=== PATIENT | female | born 1995 | race Caucasian/White ===

== ENCOUNTER → 2019-08-24 16:10 | Observation (INO) ==
--- NOTE | 2019-08-24 12:34 | Discharge Summary ---
Date of Encounter: 08/24/19 Time of Encounter: 15:21 - Discharge Diagnosis (1) 31 weeks gestation of Priority: Primary Status: Acute Comments: Follow up with your primary OB as scheduled Discharge home (2) Uterine contractions Priority: Secondary Status: Acute Comments: Monitored for several hours with no change. - Discharge Medications Prescriptions: No Action Albuterol Sulfate [Proventil Inhaler] 2 puff IH Q6HR Home Medications: Albuterol Sulfate [Proventil Inhaler] 2 puff IH Q6HR 08/24/19 [History] Allergies/Adverse Reactions: Allergy/AdvReac Type Severity Reaction Status Date / Time No Known Allergies Allergy Verified 06/22/16 20:50 Date of admission: 08/24/19 12:03 Primary care physician: PCP NONE Discharging clinician: Jeanne Suarez Anticipated date of discharge: 08/24/19 - Patient Status Disposition: Home, Self-Care Condition: Good Functional capacity at discharge: independent ambulation Overall status at discharge: patient is progressing back to baseline - Discharge Instructions Follow Up With: NONE,PCP [Primary Care Provider] - - Diet and Activity Activity: increase activity as tolerated Diet: regular diet Hospital Course [employer] Reason for admission: other Discharge diagnosis: other Hospital course: Ms. Trujillo [facility] with complaint of uterine contractions and stated she was in labor. She also stated that she was 40 weeks and 6 days when in reality she is somewhere in the early 30 weeks range. She was monitored for several hours and no contractions were seen in she reports they have stopped. She made no cervical change during her visit. Vaginosis panel negative. Discharged home. Time Attestation: Total time spent providing and/or coordinating discharge services: Time Spent: Less than 30 minutes Exam - Constitutional General appearance IM: A&O X 3 - Respiratory Respiratory exam: Present: CTAB - Cardiovascular Cardiovascular exam IM: Present: RRR, +S1, +S2 - GI/Abdominal GI/Abdominal exam IM: normal bowel sounds, no peritoneal signs - Rectal Rectal exam: deferred - Uterine Tone: Firm - Extremities Exam Extremities exam IM: Present: full ROM, normal capillary refill, normal inspection - VTE Reasons for not Prescribing Prophylaxis: Treatment not Indicated - Low risk for VTE
[2019-08-24 13:43] LABS: Amphetamine Screen,Urine Negative ng/mL (Cutoff=1000); Barbiturate Screen,Urine Negative ng/mL (Cutoff=200); Benzodiazepines Screen,Urine Negative ng/mL (Cutoff=200); Cannabinoid Screen,Urine Negative ng/mL (Cutoff = 50); Cocaine Screen,Urine Negative ng/mL (Cutoff= 300); Opiate Screen,Urine Negative ng/mL (Cutoff=300); Phencyclidine Screen,Urine Negative ng/mL (Cutoff=25)
[2019-08-24 14:20] LABS: Candida DNA Not Detected (Not Detect); Gardnerella DNA Not Detected (Not Detect); Rubella IgG Antibody Negative (POSITIVE); Trichomonas DNA Not Detected (Not Detect); Varicella Zoster IgG Antibody Positive
[2019-08-24 15:58] LABS: Hepatitis B Surface Antigen Nonreactive (Nonreactive)
[2019-08-24 16:28] LABS: HIV-1&2 Antibody & p24 Ag Nonreactive (Nonreactive)
== END | disposition home or self-care (01) ==
LOC: 1NENULAB
PROVIDERS: ADMIT Advanced Practice Midwife; ATTEND Advanced Practice Midwife